=== PATIENT | male | born 1965 | race Two or more races ===

== ENCOUNTER 2019-02-15 07:44 | Day surgery (SDC) | payer OTHER ==
[2019-02-15] MEDS ORDERED: MIDAZOLAM HCL 2 MG/2ML VIAL ONE (10:39)
[2019-02-15] MEDS ORDERED: BUPIVACAINE MPF 0.5% W/EPI INJ 30 ML VIAL ONE ×2 (11:23→11:42)
[2019-02-15] MEDS ORDERED: HYDROCODONE/APAP 5/325MG 1 EACH TABLET ONE (12:59)
== END 2019-02-15 13:30 | disposition home or self-care (01) ==
LOC: DS 07:44
PROVIDERS: ATTEND Orthopaedic Surgery
DX: G56.21 Lesion of ulnar nerve, right upper limb (principal)
CPT/HCPCS: 64718; J2250; J3490 ×2; A6402; J0690; J1100; J2405; J2704